=== PATIENT | male | born 1985 | race Caucasian/White ===

== ENCOUNTER 2025-01-23 21:51 | Emergency (ER) | payer OTHER ==
[~2025-01-23] VITALS: Ht 172.7 cm; Wt 90.0 kg
[2025-01-23 21:56] VITALS: O2SAT 94
[2025-01-23] MEDS: TETANUS, DIPHTHERIA, PERTUSSIS VAC/PF 0.5ML (>10YR OLD) IM ONE (22:48)
[2025-01-23] MEDS: HYDROCODONE/ACETAMINOPHEN 5/325MG TABLET PO ONE (22:48)
[2025-01-23] MEDS: BACITRACIN ZINC OINT UDPKT TOP ONE (22:49)
[2025-01-24] MEDS ORDERED: BO1 TP (00:27)
[2025-01-24 01:37] VITALS: BP 110/62; PULSE 99; RESP 16; TEMP 36.8; O2SAT 94
== END 2025-01-24 02:13 | disposition home or self-care (01) ==
LOC: ER 21:51
DX: S63.502A Unspecified sprain of left wrist, initial encounter (principal); S60.511A Abrasion of right hand, initial encounter; S60.512A Abrasion of left hand, initial encounter; R51.9 Headache, unspecified; F10.90 Alcohol use, unspecified, uncomplicated; Y08.89XA Assault by other specified means, initial encounter; Y93.89 Activity, other specified; Y92.89 Other specified places as the place of occurrence of the external cause; Y99.8 Other external cause status; Y90.9 Presence of alcohol in blood, level not specified
CPT/HCPCS: 71045; 72131; 73110; 90471; 90715; 99284; 99285